=== PATIENT | male | born 1965 | race Caucasian/White ===

== ENCOUNTER 2017-02-20 17:35 | Observation (INO) | payer OTHER ==
[~2017-02-20] VITALS: Ht 170.2 cm; Wt 76.4 kg
--- NOTE | 2017-02-20 18:47 | RADRPT ---
PROCEDURE: Chest x-ray CLINICAL INDICATION: Chest pain TECHNIQUE: Chest single view COMPARISON: None FINDINGS: The heart is normal in size. The pulmonary vessels are normal in caliber. The lungs are clear. Th e costophrenic angles are sharp. The visualized bony thorax is unremarkable. IMPRESSION: No acute cardiopulmonary disease. RPTAT: HH .Kevin Burgos MD, Date Time Electronically viewed and signed by .Kevin Burgos MD, MD on 02/20/2017 18:47 .W/
[2017-02-20 19:02] LABS: ABNORMAL IP MESSAGE 1; HEMATOCRIT 18.8 % (42.0-52.0); MEAN CORPUSCULAR HEMOGLOBIN 44.4 pg (29.0-33.0); MEAN CORPUSCULAR HGB CONC 36.2 g/dl (32.0-37.0); MEAN CORPUSCULAR VOLUME 122.9 fl (82.0-101.0); PLATELET COUNT 105 10^3/UL (140-415); RED BLOOD COUNT 1.53 10^6/ul (4.70-6.10); RED CELL DISTRIBUTION WIDTH 17.3 % (11.5-14.5)
[2017-02-20 19:18] LABS: INR 1.08; PT RATIO 1.1
[2017-02-20 19:19] LABS: PARTIAL THROMBOPLASTIN TIME 26.1 Sec (25.0-35.0)
[2017-02-20 19:20] LABS: ANION GAP 12 (8-16); BLOOD UREA NITROGEN 20 mg/dl (7-20); CALCIUM 9.1 mg/dl (8.4-10.2); CARBON DIOXIDE 29 mmol/L (21-31); CHLORIDE 102 mmol/L (97-110); CREATININE 0.92 mg/dl (0.61-1.24); GLUCOSE 94 mg/dl (70-220); POTASSIUM 4.1 mmol/L (3.5-5.1); SODIUM 139 mmol/L (135-144)
[2017-02-20 19:32] LABS: B-TYPE NATRIURETIC PEPTIDE 937 PG/ML (0-125)
[2017-02-20 19:37] LABS: HEMOGLOBIN 6.8 g/dl (14.0-18.0)
[2017-02-20] MEDS ORDERED: SOD CHLORIDE 0.9% 250 ML IV ONE (20:05)
[2017-02-20 20:07] LABS: EOSINOPHILS # 0.1 10^3/ul (0.0-0.5); LYMPHOCYTES # 1.3 10^3/ul (0.8-2.9); MONOCYTE # 0.1 10^3/ul (0.3-0.9); NEUTROPHIL # 2.1 10^3/ul (1.6-7.5)
[2017-02-20 20:08] LABS: OVALOCYTES FEW; TEAR DROP CELLS FEW
[2017-02-20] MEDS ORDERED: ATEN-51 PO (20:09)
[2017-02-20 20:10] LABS: TROPONIN-I < 0.012 ng/ml (0.00-0.12)
[2017-02-20 20:47] LABS: ALBUMIN 4.9 g/dl (3.3-4.9); ALBUMIN/GLOBULIN RATIO 1.63; BILIRUBIN,INDIRECT 2.3 mg/dl (0-1.1); BILIRUBIN,TOTAL 2.3 mg/dl (0.2-1.3); CALCIUM 9.2 mg/dl (8.4-10.2); CREATININE 0.91 mg/dl (0.61-1.24); POTASSIUM 4.2 mmol/L (3.5-5.1); TOTAL PROTEIN 7.9 g/dl (6.1-8.1)
[2017-02-20] MEDS ORDERED: SOD CHLORIDE 0.9% 1,000 ML IV SCH (20:47)
--- NOTE | 2017-02-20 20:51 | ERA ---
ER Documentation Chief Complaint Date/Time DATE: 02/20/17 TIME: 20:49 Chief Complaint FEELING TIRED AFTER WALKING, DENIES PAIN HPI This is a 51-year-old male with a history of hypertension and external hemorrhoids who presents to the emergency room for evaluation of generalized weakness. This patient states his weakness is worse with exertion and states that it has been getting progressively worse over the past 3 weeks. The patient is denying active chest pain or palpitations at this time. He came to the emergency room for evaluation. ROS All systems reviewed and are negative except as per history of present illness. Medications Home Meds Reported Medications Atenolol* (Atenolol*) 25 Mg Tablet, 25 MG PO DAILY, #30 TAB 02/20/17 Allergies Allergies: Coded Allergies: Penicillins (Unverified Allergy, Unknown, 02/20/17) ampicillin (Unverified Allergy, Unknown, 02/20/17) PMhx/Soc Medical and Surgical Hx: pt denies Medical Hx, pt denies Surgical Hx History of Surgery: No Anesthesia Reaction: No Hx Neurological Disorder: No Hx Respiratory Disorders: No Hx Cardiac Disorders: No Hx Psychiatric Problems: No Hx Miscellaneous Medical Probl: No Hx Alcohol Use: No Hx Substance Use: No Hx Tobacco Use: No Smoking Status: Never smoker Physical Exam Vitals Vital Signs Date Time Temp Pulse Resp B/P Pulse Ox O2 Delivery O2 Flow Rate FiO2 02/20/17 19:53 Nasal Cannula 02/20/17 17:43 98.7 88 17 109/53 100 Physical Exam INITIAL VITAL SIGNS: Reviewed by me GENERAL: The patient is well developed and appropriate for usual state of health in no apparent distress HEENT: Conjunctival pallor, pupils equal, round, and reactive to light. EOMI. There is no scleral icterus. NECK: C-spine is soft and supple, there is no meningismus. There is no cervical lymphadenopathy. LUNGS: Clear to auscultation bilaterally. There are no rales, wheezes or rhonchi. HEART: Regular rate and rhythm, no murmurs, clicks, rubs or gallops. ABDOMEN: Soft, non-tender, non-distended. There are bowel sounds in all four quadrants. No rebound or guarding. EXTREMITIES: There is no peripheral cyanosis or edema. No focal swelling or erythema. NEUROLOGICAL: The patient moves all four extremities with 5/5 strength. Cranial nerves II - XII are intact. Normal gait. Alert and oriented SKIN: There is no apparent rash or petechiae. HEME/LYMPHATIC: There is no evidence of excessive bruising or lymphedema. PSYCHIATRIC: The patient does not appear anxious or depressed. Result Diagram: 02/20/17184602/20/171846 Results 24 hrs Laboratory Tests Test 02/20/17 18:47 White Blood Count 3.510^3/ul Red Blood Count 1.5310^6/ul Hemoglobin 6.8g/dl Hematocrit 18.8% Mean Corpuscular Volume 122.9fl Mean Corpuscular Hemoglobin 44.4pg Mean Corpuscular Hemoglobin Concent 36.2g/dl Red Cell Distribution Width 17.3% Platelet Count 02588^3/UL Mean Platelet Volume fl Neutrophils % 60.0% Lymphocytes % 36.0% Monocytes % 2.0% Eosinophils % 2.0% Neutrophils # 2.110^3/ul Lymphocytes # 1.310^3/ul Monocytes # 0.110^3/ul Eosinophils # 0.110^3/ul Macrocytosis 1+ Tear Drop Cells FEW Ovalocytes FEW Prothrombin Time 14.0Sec Prothrombin Time Ratio 1.1 INR International Normalized Ratio 1.08 Activated Partial Thromboplast Time 26.1Sec Sodium Level 139mmol/L Potassium Level 4.1mmol/L Chloride Level 102mmol/L Carbon Dioxide Level 29mmol/L Anion Gap 12 Blood Urea Nitrogen 20mg/dl Creatinine 0.92mg/dl Glucose Level 94mg/dl Calcium Level 9.1mg/dl Troponin I < 0.012ng/ml B-Type Natriuretic Peptide 937PG/ML Current Medications Medications (Trade) Dose Ordered Sig/Marcia Route PRN Reason Start Time Stop Time Status Last Admin Dose Admin Sodium Chloride (NS) 250 ml @ 0 mls/hr Q0M ONCE IV 02/20/17 20:05 02/20/17 20:43 DC Procedures/MDM EKG: Rate/Rhythm: [Normal Sinus Rhythm] QRS, ST, T-waves: [No changes consistent w/ acute ischemia] Impression: [No evidence of ischemia or arrhythmia] Chest X-ray 1V Interpreted by me: Soft Tissue: No acute abnormalities Bones: No acute abnormalities Mediastinum/Cardiac Silhouette/Lungs: [No acute abnormalities] This 51-year-old male presents to the ER for evaluation of progressively worsening fatigue. When I evaluated this patient he did have conjunctival pallor. Examination he did have external hemorrhoids. Lab work was obtained which shows a hemoglobin of 6.8. This patient does have a macrocytic anemia. This patient will be admitted at this time. I was going to transfuse this patient 2 units of packed red blood cells in the emergency room however his admitting physician, Dr. villareal would like to hold off on blood transfusion until he evaluates the patient. This patient is hemodynamically stable at this time and will be placed in the [facility] floor. Critical Care: Time: 32 minutes Treatments/Evaluations: Close monitoring and treatment of unstable vital signs, cardiorespiratory, and neurologic status, while maintaining tight balance of fluid, respiratory, and cardiac interventions. Departure Diagnosis: Primary Impression: Symptomatic anemia Additional Impressions: Macrocytic anemia Fatigue Condition: Stable KELSEA DICK DO Feb 20, 2017 20:50
[2017-02-20] MEDS ORDERED: ACETAMINOPHEN 325 MG TAB PO PRN ×2 (21:00→22:00)
[2017-02-20] MEDS ORDERED: ONDANSETRON 4 MG INJ IV PRN ×2 (21:00→22:00)
[2017-02-20 21:30] VITALS: PULSE 87; TEMP 98.7
[2017-02-20] MEDS ORDERED: SOD CHLORIDE 0.9% 250 ML IV* ONE (21:44)
[2017-02-20] MEDS ORDERED: ACETAMINOPHEN 325 MG TAB PO SCH (22:00)
[2017-02-20] MEDS ORDERED: FUROSEMIDE 40 MG INJ IV SCH (22:00)
[2017-02-20] MEDS ORDERED: morphine 4 MG/ML VIAL IV PRN (22:00)
[2017-02-20 22:08] LABS: RETICULOCYTE COUNT % 1.7 % (0.5-1.5)
[2017-02-20 22:12] LABS: IRON 166 ug/dl (35-150)
[2017-02-20 22:22] LABS: TOTAL IRON BINDING CAPACITY 324 ug/dl (241-421)
[2017-02-20 23:11] VITALS: Ht 170.2 cm; Wt 76.4 kg
[2017-02-20 23:21] LABS: FOLATE 18.6 ng/ml (2.8-20.0)
[2017-02-20 23:30] VITALS: BP 103/58; RESP 18
--- NOTE | 2017-02-20 23:31 | HP ---
Date/Time of Note Date/Time of Note DATE: 02/20/17 TIME: 23:28 Assessment/Plan VTE Prophylaxis VTE Prophylaxis Intervention: contraindicated Lines/Catheters IV Catheter Type (from Nrsg): Saline Lock Assessment/Plan Assessment/Plan 1. symptomatic anemia, await work up, transfuse 2. htn HPI/ROS Admit Date/Time Admit Date/Time Feb 20, 2017 at 20:48 Hx of Present Illness patient presents with dyspnea on exertion, worsening over last several days. he denies recent illness, denies orthopnea, pnd, angina PMH/Family/Social Past Medical History 1. htn Social History lives at home in [place], not working, iadls Alcohol Use: rarely Smoking Status: Former smoker Exam/Review of Systems Vital Signs Vitals Vital Signs Date Time Temp Pulse Resp B/P Pulse Ox O2 Delivery O2 Flow Rate FiO2 02/20/17 21:30 98.7 87 17 107/62 100 Room Air Exam Constitutional: alert, oriented Head: atraumatic, normocephalic Eyes: nl conjunctiva Neck: non-tender, supple Respiratory: clear to auscultation Cardiovascular: regular rate and rhythm Gastrointestinal: non-tender, soft Labs Result Diagram: 02/20/17184602/20/172019 Medications Medications Current Medications Sodium Chloride (NS) 1,000 ml @ 80 mls/hr [id number] IV ; Start 02/20/17 at 20:47 ; Stop 02/21/17 at 09:16 Acetaminophen (Tylenol Tab) 650 mg Q4H PRN PO pain/fever; Start 02/20/17 at 22: 00 Ondansetron HCl (Zofran Inj) 4 mg Q4H PRN IV nausea; Start 02/20/17 at 22:00 Morphine Sulfate (morphine) 4 mg Q4H PRN IV pain; Start 02/20/17 at 22:00 Furosemide (Lasix) 40 mg ONCE IV ; Start 02/20/17 at 22:00; Stop 02/21/17 at 21: 59 Acetaminophen (Tylenol Tab) 650 mg ONCE PO Last administered on 02/20/17t 22:04 ; Admin Dose 650 MG; Start 02/20/17 at 22:00; Stop 02/21/17 at 21:59 Atenolol (Tenormin) 25 mg DAILY PO ; Start 02/21/17 at 09:00 PASCUAL DORAN MD Feb 20, 2017 23:30
[2017-02-21 01:31] LABS: CREATINE KINASE 57 IU/L (23-200)
[2017-02-21 01:45] LABS: CK-MB 0.26 ng/ml (0.0-2.4); TROPONIN-I < 0.012 ng/ml (0.00-0.12)
[2017-02-21 07:27] LABS: CREATINE KINASE 47 IU/L (23-200)
[2017-02-21 07:32] VITALS: BP 92/53; RESP 20
[2017-02-21 07:41] LABS: CK-MB 0.22 ng/ml (0.0-2.4); TROPONIN-I < 0.012 ng/ml (0.00-0.12)
[2017-02-21] MEDS ORDERED: ATENOLOL 25 MG TAB PO SCH (09:00)
--- NOTE | 2017-02-21 12:00 | PDOCDIS ---
Discharge Instructions CONDITION Patient Condition: Good HOME CARE INSTRUCTIONS: Diet Instructions: Regular ACTIVITY: Activity Restrictions: No Restrictions FOLLOW UP/APPOINTMENTS Follow-up Plan 1. follow up with [facility] 1 week 2. primary care doctor to obain the results of the following blood tests: parietal cell Ab and Intrinsic factor ab 3. primary care doctor to arrange for ongoing b12 injections and treatment PASCUAL DORAN MD Feb 21, 2017 12:00
--- NOTE | 2017-02-21 12:03 | DS ---
Date/Time of Note Date/Time of Note DATE: 02/21/17 TIME: 12:01 Discharge Summary Admission/Discharge Info Admit Date/Time Feb 20, 2017 at 20:48 Discharge Date/Time 02/21/17 Discharge Diagnosis 1. symptomatic anemia secondary to vitamin b12 deficiency Patient Condition: Good Hx of Present Illness patient admit with dyspnea on exertion. found to have significant macrocytic anemia, work up revealed b12 deficiency. he is trasnfused, given b12 1mg sub q and d/c home he is instructed to obtain further b12 injections from his PCP Hospital Course see above Home Meds Reported Medications Atenolol* (Atenolol*) 25 Mg Tablet, 25 MG PO DAILY, #30 TAB 02/20/17 Primary Care Provider Socorro Quintero Time spent on discharge: < 30 minutes Pending Labs Laboratory Tests Test 02/20/17 18:47 02/20/17 20:20 02/21/17 00:40 02/21/17 05:35 White Blood Count 3.510^3/ul (4.8-10.8) Red Blood Count 1.5310^6/ul (4.70-6.10) Hemoglobin 6.8g/dl (14.0-18.0) Hematocrit 18.8% (42.0-52.0) Mean Corpuscular Volume 122.9fl (82.0-101.0) Mean Corpuscular Hemoglobin 44.4pg (29.0-33.0) Mean Corpuscular Hemoglobin Concent 36.2g/dl (32.0-37.0) Red Cell Distribution Width 17.3% (11.5-14.5) Platelet Count 61850^3/UL (140-415) Mean Platelet Volume fl (7.4-10.4) Neutrophils % 60.0% (39.0-77.0) Lymphocytes % 36.0% (15.0-51.0) Monocytes % 2.0% (0.0-11.0) Eosinophils % 2.0% (0.0-7.0) Neutrophils # 2.110^3/ul (1.6-7.5) Lymphocytes # 1.310^3/ul (0.8-2.9) Monocytes # 0.110^3/ul (0.3-0.9) Eosinophils # 0.110^3/ul (0.0-0.5) Macrocytosis 1+ Tear Drop Cells FEW Ovalocytes FEW Prothrombin Time 14.0Sec (12.2-14.2) Prothrombin Time Ratio 1.1 INR International Normalized Ratio 1.08 Activated Partial Thromboplast Time 26.1Sec (25.0-35.0) Sodium Level 139mmol/L (135-144) 139mmol/L (135-144) Potassium Level 4.1mmol/L (3.5-5.1) 4.2mmol/L (3.5-5.1) Chloride Level 102mmol/L (97-110) 102mmol/L (97-110) Carbon Dioxide Level 29mmol/L (21-31) 30mmol/L (21-31) Anion Gap 12 (8-16) 11 (8-16) Blood Urea Nitrogen 20mg/dl (7-20) 20mg/dl (7-20) Creatinine 0.92mg/dl (0.61-1.24) 0.91mg/dl (0.61-1.24) Glucose Level 94mg/dl (70-220) 90mg/dl (70-220) Calcium Level 9.1mg/dl (8.4-10.2) 9.2mg/dl (8.4-10.2) Troponin I < 0.012ng/ml (0.00-0.12) < 0.012ng/ml (0.00-0.12) < 0.012ng/ml (0.00-0.12) B-Type Natriuretic Peptide 937PG/ML (0-125) Absolute Reticulocyte Count 0.025X10^6 (0.020-0.110) Percent Reticulocyte Count 1.7% (0.5-1.5) Iron Level 166ug/dl (35-150) Total Iron Binding Capacity 324ug/dl (241-421) Percent Iron Saturation 51% SAT (22-52) Total Bilirubin 2.3mg/dl (0.2-1.3) Direct Bilirubin 0.00mg/dl (0.00-0.20) Indirect Bilirubin 2.3mg/dl (0-1.1) Aspartate Amino Transf (AST/SGOT) 136IU/L (15-46) Alanine Aminotransferase (ALT/SGPT) 89IU/L (13-69) Alkaline Phosphatase 24IU/L (42-121) Total Protein 7.9g/dl (6.1-8.1) Albumin 4.9g/dl (3.3-4.9) Globulin 3.00g/dl (1.3-3.2) Albumin/Globulin Ratio 1.63 Lipase 157U/L (23-300) Vitamin B12 Level < 159pg/ml (239-931) Folate 18.6ng/ml (2.8-20.0) Thyroid Stimulating Hormone (TSH) 1.350MIU/L (0.465-4.680) Creatine Kinase 57IU/L (23-200) 47IU/L (23-200) Creatine Kinase Index 0.5 0.5 Creatinine Kinase MB (Mass) 0.26ng/ml (0.0-2.4) 0.22ng/ml (0.0-2.4) Test 02/21/17 07:29 Lab Scanned Report BLOOD [id number] PASCUAL DORAN MD Feb 21, 2017 12:03
[2017-02-21] MEDS ORDERED: CYANOCOBALAMIN 1000 MCG INJ SC ONE (13:30)
[2017-02-21 14:58] LABS: ABNORMAL IP MESSAGE 1; HEMOGLOBIN 10.1 g/dl (14.0-18.0); MEAN CORPUSCULAR HEMOGLOBIN 39.3 pg (29.0-33.0); MEAN CORPUSCULAR VOLUME 106.2 fl (82.0-101.0); PLATELET COUNT 90 10^3/UL (140-415); WHITE BLOOD COUNT 2.8 10^3/ul (4.8-10.8)
[2017-02-21 15:00] LABS: HEMATOCRIT 27.3 % (42.0-52.0); RED BLOOD COUNT 2.57 10^6/ul (4.70-6.10)
[2017-02-21 15:01] LABS: MEAN PLATELET VOLUME 13.7 fl (7.4-10.4)
[2017-02-21 15:02] LABS: RED CELL DISTRIBUTION WIDTH 24.9 % (11.5-14.5)
[2017-02-21 15:35] LABS: LYMPHOCYTES # 1.3 10^3/ul (0.8-2.9); MONOCYTE # 0.1 10^3/ul (0.3-0.9); NEUTROPHIL # 1.5 10^3/ul (1.6-7.5)
[2017-02-21 15:39] LABS: ANISOCYTOSIS 1+
[2017-02-23 17:47] LABS: WHITE BLOOD COUNT 3.5 10^3/ul (4.8-10.8)
== END 2017-02-21 15:27 | disposition home health service (06) ==
LOC: FTE 17:35 → MS2 20:48 → INTOOBSV 20:48 → UNDODISIN 02-21 15:27
PROVIDERS: ADMIT Legal Medicine; ATTEND Legal Medicine
DX: D64.9 Anemia, unspecified (principal); I10 Essential (primary) hypertension; D51.9 Vitamin B12 deficiency anemia, unspecified
CPT/HCPCS: 36415; 36430; 71010; 80048; 80053; 82550; 82553; 82607; 82746; 83540; 83690; 83880; 84443; 84484; 85025; 85045; 85610; 85730; 86340; 86850; 86900; 86901; 86920; 93005; 96361; 96372; 96374; J1940; J3420; J7030; J7040; P9016; Z7500; Z7502; Z7610; 99217; G0378